=== PATIENT | male | born 1980 | race Caucasian/White ===

== ENCOUNTER 2020-05-29 17:45 | Emergency (ER) | payer SELFPAY ==
[~2020-05-29] VITALS: Ht 175.2 cm; Wt 117.0 kg
[~2020-05-29 17:45] MED LIST: BACTRIM DS 8001 TA1 PO; CATAFLAM50 MG PO; CLINDAMYCIN HC300 MG PO; EES400 MG PO; FLEXERIL5 MG PO; IBU-TAB800 MG; KEFLEX500 MG PO; MOTRIN800 MG PO; NKHM; PREDNISONE20 MG PO; ROBAXIN500 MG PO; TORADOL10 MG PO; TRAMADOL HCL50 MG PO; VICODIN 5/500 505 MG PO; VICODIN ES 7501 TAB PO
== END 2020-05-29 18:30 | disposition left against medical advice (07) ==
LOC: ED 17:45
DX: M25.532 Pain in left wrist (principal); Z90.49 Acquired absence of other specified parts of digestive tract; Z98.890 Other specified postprocedural states; Z53.29 Procedure and treatment not carried out because of patient's decision for other reasons

== ENCOUNTER 2023-05-21 22:56 | Emergency (ER) | payer SELFPAY ==
[~2023-05-21 22:56] MED LIST changes: +VIBRAMYCIN100 MG PO
[2023-05-21] MEDS ORDERED: Naloxone Hydrochloride 2 MG/2 ML SYR ONE (23:01)
[2023-05-21] MEDS ORDERED: LORazepam 2 MG/ML VIAL ONE (23:09)
== END 2023-05-22 08:02 | disposition home or self-care (01) ==
LOC: ED 22:56
DX: Z04.89 Encounter for examination and observation for other specified reasons (principal); F11.10 Opioid abuse, uncomplicated; F15.10 Other stimulant abuse, uncomplicated

== ENCOUNTER 2024-06-17 18:34 | Emergency (ER) | payer OTHER ==
[2024-06-17] MEDS ORDERED: MEDROL DOSEPAK4 MG PO (19:41)
== END 2024-06-17 19:49 | disposition home or self-care (01) ==
LOC: ED 18:34
DX: J02.9 Acute pharyngitis, unspecified (principal); Z88.0 Allergy status to penicillin